=== PATIENT | male | born 1985 | race Caucasian/White ===

== ENCOUNTER → 2019-06-04 | Outpatient (CLI) | payer OTHER ==
--- NOTE | 2019-06-04 14:40 | US ---
EXAM DESCRIPTION: Soft Tissue,Head/Neck: ULTRASOUND. CLINICAL HISTORY: 34 years Male SWELLING MASS LUMP,NECK COMPARISON: None Available. TECHNIQUE: Transcutaneous scanning: Elmore-scale and Doppler modes. FINDINGS: Scanning over discolor skin region on left neck. Normal appearance of the adipose tissue and muscular tissue. No dominant solid mass or distinct cyst. No parenchymal edema or large calcifications. IMPRESSION: No soft tissue abnormality on ultrasound scan of region of discolor skin on the left neck. Electronically signed by: Sharan Carvalho MD 06/04/2019 2:39 PM CDT
== END ==
LOC: US 10:23
PROVIDERS: ATTEND Nurse Practitioner Family
DX: R22.1 Localized swelling, mass and lump, neck (principal)

== ENCOUNTER 2019-06-24 13:42 | Emergency (ER) | payer OTHER ==
[2019-06-24 14:01] VITALS: BP 161/91; TEMP 99.1; O2SAT 95
[2019-06-24] MEDS ORDERED: KETOROLAC TROMETHAMINE INJ 60 MG/2 ML VIAL IM ONE (14:27)
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
== END 2019-06-24 15:00 | disposition home or self-care (01) ==
LOC: ER 13:42
DX: S13.4XXA Sprain of ligaments of cervical spine, initial encounter (principal); I10 Essential (primary) hypertension; V59.49XA Driver of pick-up truck or van injured in collision with other motor vehicles in traffic accident, initial encounter; Y92.410 Unspecified street and highway as the place of occurrence of the external cause
CPT/HCPCS: J1885; L0120